=== PATIENT | male | born 1975 | race Hispanic/Latino ===

== ENCOUNTER 2017-11-23 01:47 | Emergency (ER) | payer SELFPAY ==
[2017-11-23] MEDS ORDERED: NA CHLORIDE 0.9% 1,000 ML ONE (03:02)
[2017-11-23] MEDS ORDERED: FAMOTIDINE 20 MG/2 ML VIAL IV ONE (03:03)
[2017-11-23] MEDS ORDERED: ONDANSETRON 4 MG/2 ML VIAL ONE ×2 (03:04→07:24)
[2017-11-23 03:12] LABS: Absolute Lymphocytes (CBC) 0.4 K/uL (0.7-4.9); Absolute Monocytes 0.2 K/uL (0.1-1.3); Absolute Neutrophil 8.2 K/uL (1.8-8.0); Basophils % 0.1 % (0-1.3); Eosinophils % 0.2 % (0-4.4); Hematocrit 43.2 % (39.6-49.0); MCH 31.8 pg (27.0-35.0); MCV 91.9 fL (80-100); MPV 7.9 fL (7.6-11.3); Monocytes % 2.6 % (3.3-12.3)
[2017-11-23 03:38] LABS: ALT/SGPT 24 U/L (12-78); AST/SGOT 19 U/L (15-37); Albumin 4.1 g/dL (3.4-5.0); Alkaline Phosphatase 94 U/L (45-117); Amylase Level 74 U/L (25-115); BUN Blood Urea Nitrogen 17 mg/dL (7-18); Bicarbonate 29 mmol/L (21-32); Bilirubin Direct 0.2 mg/dL (0-0.2); Bilirubin Total 0.6 mg/dL (0.2-1.0); Glucose Level 103 mg/dL (74-106); Lipase 159 U/L (73-393); Potassium 3.8 mmol/L (3.5-5.1); Protein, Total 8.4 g/dL (6.4-8.2); Sodium Level 141 mmol/L (136-145)
[2017-11-23 05:03] LABS: Blood Morphology Comment NOT SEEN (NOT SEEN); Platelet Estimate ADEQ; Urine White Blood Cell Casts OK
--- NOTE | 2017-11-23 07:18 | EDPHYS ---
Physician Documentation [facility] Name: Blayne Garcia Age: 42 yrs Sex: Male : 1975 Arrival Date: 11/23/2017 Time: 01:49 Bed 14 Private MD: ED Physician Abraham Mcdaniels HPI: 11/23 02:30 This 42 yrs old Male presents to ER via EMS with complaints of nausea and cp vomiting. 02:30 The patient presents to the emergency department with nausea, with "dry heaves", cp vomiting, that is continuous, abdominal pain, of the epigastric area and right upper quadrant. Onset: The symptoms/episode began/occurred yesterday, at 16:00. Possible causes: unknown. Associated signs and symptoms: Pertinent positives: fever, Pertinent negatives: diarrhea. Severity of symptoms: in the emergency department the symptoms are unchanged despite home interventions. Historical: - Allergies: 01:54 No Known Allergies; bp - Home Meds: 01:54 carbamazepine 200 mg Oral CM12 800 mg daily [Active]; bp - PMHx: 01:54 EPILEPSY; Cerebral Palsy; bp - Immunization history:: Adult Immunizations up to date. - Social history:: Smoking status: Patient/guardian denies using tobacco. - Ebola Screening: : Patient negative for fever greater than or equal to 101.5 degrees Fahrenheit, and additional compatible Ebola Virus Disease symptoms Patient denies exposure to infectious person Patient denies travel to an Ebola-affected area in the 21 days before illness onset No symptoms or risks identified at this time. ROS: 02:35 Constitutional: Positive for poor PO intake, Negative for fever. cp 02:35 Eyes: Negative for injury, pain, redness, and discharge. cp 02:35 ENT: Negative for drainage from ear(s), ear pain, sore throat, difficulty swallowing, difficulty handling secretions. 02:35 Cardiovascular: Negative for chest pain. 02:35 Respiratory: Negative for cough, wheezing. 02:35 Abdomen/GI: Positive for abdominal pain, nausea and vomiting, Negative for diarrhea, constipation, hematemesis, black/tarry stool, rectal bleeding. 02:35 Neuro: Negative for altered mental status. 02:35 All other systems are negative. Exam: 02:35 Head/Face: Normocephalic, atraumatic. cp 02:35 Eyes: Pupils equal round and reactive to light, extra-ocular motions intact. Lids and lashes normal. Conjunctiva and sclera are non-icteric and not injected. Cornea within normal limits. Periorbital areas with no swelling, redness, or edema. ENT: Nares patent. No nasal discharge, no septal abnormalities noted. Tympanic membranes are normal and external auditory canals are clear. Oropharynx with no redness, swelling, or masses, exudates, or evidence of obstruction, uvula midline. Mucous membranes moist. Chest/axilla: Normal chest wall appearance and motion. Nontender with no deformity. No lesions are appreciated. 02:35 Constitutional: The patient appears in no acute distress, alert, awake, non-toxic. 02:35 Cardiovascular: Rate: tachycardic, Rhythm: regular. 02:35 Respiratory: the patient does not display signs of respiratory distress, Respirations: normal, no use of accessory muscles, no retractions, no splinting, no tachypnea, labored breathing, is not present, Breath sounds: are clear throughout, no decreased breath sounds, no stridor, no wheezing. 02:35 Abdomen/GI: Inspection: abdomen appears normal, Bowel sounds: active, all quadrants, Palpation: soft, in all quadrants, mild abdominal tenderness, in the epigastric area and right upper quadrant, rebound tenderness, is not appreciated, voluntary guarding, is not appreciated, involuntary guarding, is not appreciated. 02:35 Back: pain, is absent, ROM is normal. Vital Signs: 01:54 BP 114 / 79; Pulse 126; Resp 18; Temp 98.6; Pulse Ox 97% on R/A; Weight 47.63 kg; bp 02:44 BP 110 / 96; Pulse 113; Resp 17 S; Pulse Ox 98% on R/A; jd3 03:34 BP 104 / 79; Pulse 103; Resp 16 S; Pulse Ox 98% on R/A; jd3 04:26 BP 104 / 79; Pulse 109; Resp 16 S; Pulse Ox 98% on R/A; jd3 05:50 BP 113 / 74; Pulse 107; Resp 16 S; Pulse Ox 98% on R/A; jd3 06:37 BP 107 / 67; Pulse 97; Resp 16 S; Pulse Ox 99% on R/A; jd3 09:15 BP 113 / 71; Pulse 98; Resp 16; Pulse Ox 98% on R/A; Pain 0/10; iw MDM: 02:01 Patient medically screened. cp 03:05 Differential diagnosis: gastritis, cholecystitis, pancreatitis, appendicitis, cp diverticulitis, viral gastroenteritis, gastroenteritis. 07:10 Data reviewed: vital signs, nurses notes, lab test result(s), radiologic studies. Test wa interpretation: by ED physician or midlevel provider: labs noted wnl. CT: enteritis? air space opacities may represent atelectasis vs aspiration. 11/23 02:25 Order name: Amylase, Serum; Complete Time: 07:00 cp 11/23 02:25 Order name: Basic Metabolic Panel; Complete Time: 07:01 cp 11/23 02:25 Order name: CBC with Diff; Complete Time: 07:01 cp 11/23 02:25 Order name: Creatinine for Radiology; Complete Time: 07:01 cp 11/23 02:25 Order name: Hepatic Function; Complete Time: 07:01 cp 11/23 02:25 Order name: Lipase; Complete Time: 07:01 cp 11/23 02:39 Order name: CT Abd/Pelvis - W/Contrast; Complete Time: 15:17 cp 11/23 03:01 Order name: XRAY Chest (1 view); Complete Time: 15:17 cp 11/23 05:03 Order name: CBC Smear Scan; Complete Time: 07:01 EDMS 11/23 02:25 Order name: IV Saline Lock; Complete Time: 03:05 cp 11/23 02:25 Order name: Labs collected and sent; Complete Time: 03:05 cp Administered Medications: 03:04 Drug: Pepcid 20 mg Route: IVP; Site: right antecubital; jd3 06:56 Follow up: Response: No adverse reaction jd3 03:05 Drug: Zofran 4 mg Route: IVP; Site: right antecubital; jd3 06:57 Follow up: Response: No adverse reaction jd3 03:05 Drug: NS 0.9% 1000 ml Route: IV; Rate: 1 bolus; Site: right antecubital; jd3 06:57 Follow up: Response: No adverse reaction; IV Status: Completed infusion; IV Intake: jd3 1000ml 07:20 Drug: Zofran 2 mg Route: IVP; Site: right antecubital; iw 09:01 Follow up: Response: No adverse reaction; Vomiting decreased iw 07:30 Drug: Rocephin - (cefTRIAXone) 2 grams Route: IVPB; Infused Over: 30 mins; Site: right iw antecubital; 07:40 Follow up: IV Status: Completed infusion iw 07:39 Drug: Zithromax 500 mg Route: IVPB; Infused Over: 1 hrs; Site: right antecubital; iw 09:00 Follow up: IV Status: Completed infusion iw Disposition: 11/23/17 07:17 Discharged to Home. Impression: Acute Vomiting, Pulmonary Infitrates. - Condition is Stable. - Discharge Instructions: Nausea and Vomiting, Adult, [place], [place] Diet. - Prescriptions for Augmentin 875- 125 mg Oral Tablet - take 1 tablet by ORAL route every 12 hours for 10 days; 20 tablet. Zofran 4 mg Oral Tablet - take 1 tablet by ORAL route every 12 hours As needed; 20 tablet. - Medication Reconciliation Form, Thank You Letter, Antibiotic Education, Prescription Opioid Use form. - Follow up: Private Physician; When: 1 - 2 days; Reason: Re-evaluation by your physician. - Problem is new. - Symptoms have improved. - Notes: follow up with his doctor within 2 days for further evaluation. Signatures: Dispatcher [employer] Cristal West RN RN iw Archie Burks PA PA cp Appiah, William, MD MD wa Davies, Jonathon, RN RN jd3 Peltier, Brian, RN RN bp Corrections: (The following items were deleted from the chart) 09:47 07:17 11/23/2017 07:17 Discharged to Home. Impression: Acute Vomiting; Pulmonary iw Infitrates. Condition is Stable. Forms are Medication Reconciliation Form, Thank You Letter, Antibiotic Education, Prescription Opioid Use. Follow up: Private Physician; When: 1 - 2 days; Reason: Re-evaluation by your physician. Problem is new. Symptoms have improved. wa
--- NOTE | 2017-11-23 07:18 | ER ---
Nurse's Notes [facility] Name: Blayne Garcia Age: 42 yrs Sex: Male : 1975 Arrival Date: 11/23/2017 Time: 01:49 Bed 14 Private MD: Diagnosis: Acute Vomiting;Pulmonary Infitrates Presentation: 11/23 01:50 Presenting complaint: EMS states: NAUSEA AND VOMITING SINCE 1600. Transition of care: bp patient was not received from another setting of care. Onset of symptoms was November 22, 2017 at 16:00. Risk Assessment: Do you want to hurt yourself or someone else? Patient reports no desire to harm self or others. Initial Sepsis Screen: Does the patient meet any 2 criteria? No. Patient's initial sepsis screen is negative. Does the patient have a suspected source of infection? No. Patient's initial sepsis screen is negative. Care prior to arrival: Glucose check: 95. 01:50 Method Of Arrival: EMS: [facility] bp 01:50 Acuity: LILI 3 bp Triage Assessment: 01:54 General: Appears in no apparent distress. comfortable, Behavior is calm, cooperative. bp Pain: Denies pain. Historical: - Allergies: 01:54 No Known Allergies; bp - Home Meds: 01:54 carbamazepine 200 mg Oral CM12 800 mg daily [Active]; bp - PMHx: 01:54 EPILEPSY; Cerebral Palsy; bp - Immunization history:: Adult Immunizations up to date. - Social history:: Smoking status: Patient/guardian denies using tobacco. - Ebola Screening: : Patient negative for fever greater than or equal to 101.5 degrees Fahrenheit, and additional compatible Ebola Virus Disease symptoms Patient denies exposure to infectious person Patient denies travel to an Ebola-affected area in the 21 days before illness onset No symptoms or risks identified at this time. Screenin:54 Abuse screen: Denies threats or abuse. Nutritional screening: No deficits noted. jd3 Tuberculosis screening: No symptoms or risk factors identified. Fall Risk Secondary diagnosis (15 points) impaired mobility, Ambulatory Aid- None/Bed Rest/Nurse Assist (0 pts). Gait- Impaired (20 pts.). Mental Status- Oriented to own ability (0 pts). Total García Fall Scale indicates Low Risk Score (25-44 pts). Fall prevention measures have been instituted. Side Rails Up X 2 Placed close to Nursing Station Frequent Obs/Assesments occuring Family Present and informed to notify staff if they need to leave bedside. Assessment: 01:49 General: Appears uncomfortable, Behavior is cooperative. Pain: Complains of pain in jd3 abdomen Quality of pain is described as aching, Also complains of nausea. 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 Cardiovascular: Capillary refill < 3 seconds Patient's skin is warm and dry. Respiratory: Airway is patent Respiratory effort is even, unlabored, Respiratory pattern is regular, symmetrical, Breath sounds are clear bilaterally. GI: Abdomen is round Bowel sounds present X 4 quads. Abd is soft and non tender X 4 quads. Parent/caregiver reports the patient having nausea, vomiting. : No signs and/or symptoms were reported regarding the genitourinary system. EENT: No signs and/or symptoms were reported regarding the EENT system. Derm: Skin is intact, Skin is dry, Skin is normal, Skin temperature is warm. 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 02:44 Reassessment: Patient appears in no apparent distress at this time. No changes from jd3 previously documented assessment. Patient and/or family updated on plan of care and expected duration. Pain level reassessed. 03:34 Reassessment: Patient appears in no apparent distress at this time. No changes from jd3 previously documented assessment. Patient and/or family updated on plan of care and expected duration. Pain level reassessed. 04:26 Reassessment: Patient appears in no apparent distress at this time. No changes from jd3 previously documented assessment. Patient and/or family updated on plan of care and expected duration. Pain level reassessed. 05:51 Reassessment: Patient appears in no apparent distress at this time. No changes from jd3 previously documented assessment. Patient and/or family updated on plan of care and expected duration. Pain level reassessed. 06:36 Reassessment: Patient appears in no apparent distress at this time. No changes from jd3 previously documented assessment. Patient and/or family updated on plan of care and expected duration. Pain level reassessed. 07:37 Reassessment: pt vomited small amount of liquid while receiving Rocephin, Zofran was iw given prior to Rocephin, mother at bedside, VSS. 09:26 Reassessment: Patient appears in no apparent distress at this time. Patient and/or iw family updated on plan of care and expected duration. Pain level reassessed. pt drank 2 oz apple juice with no vomiting, waiting for mother to return to dept to discharge pt, called mother several times. Vital Signs: 01:54 BP 114 / 79; Pulse 126; Resp 18; Temp 98.6; Pulse Ox 97% on R/A; Weight 47.63 kg; bp 02:44 BP 110 / 96; Pulse 113; Resp 17 S; Pulse Ox 98% on R/A; jd3 03:34 BP 104 / 79; Pulse 103; Resp 16 S; Pulse Ox 98% on R/A; jd3 04:26 BP 104 / 79; Pulse 109; Resp 16 S; Pulse Ox 98% on R/A; jd3 05:50 BP 113 / 74; Pulse 107; Resp 16 S; Pulse Ox 98% on R/A; jd3 06:37 BP 107 / 67; Pulse 97; Resp 16 S; Pulse Ox 99% on R/A; jd3 09:15 BP 113 / 71; Pulse 98; Resp 16; Pulse Ox 98% on R/A; Pain 0/10; iw ED Course: 01:49 Patient arrived in ED. jd3 01:51 Triage completed. bp 01:55 Patient has correct armband on for positive identification. Bed in low position. Call jd3 light in reach. Side rails up X2. Adult w/ patient. 01:55 Arm band placed on. jd3 02:00 Archie Burks PA is PHCP. cp 02:00 Abraham Mcdaniels MD is Attending Physician. cp 02:03 Hipolito Nunez, ABRAHAM is Primary Nurse. jd3 03:19 X-ray completed. Portable x-ray completed in exam room. Patient tolerated procedure kw well. 03:20 XRAY Chest (1 view) In Process Unspecified. EDMS 05:04 CT completed. Patient tolerated procedure well. Patient moved to CT via stretcher. Patient moved back from CT. 05:05 CT Abd/Pelvis - W/Contrast In Process Unspecified. EDMS 07:09 Primary Nurse role handed off by Hipolito Nunez, ABRAHAM iw 07:09 Cristal Turpin, RN is Primary Nurse. iw 07:10 Inserted saline lock: 20 gauge in right antecubital area, using aseptic technique. IV iw inserted by scene shifter staff. 07:39 IV is patent, is intact, with fluids infusing freely, with good blood return. iw 09:47 No provider procedures requiring assistance completed. IV discontinued, intact, iw bleeding controlled, No redness/swelling at site. Pressure dressing applied. Administered Medications: 03:04 Drug: Pepcid 20 mg Route: IVP; Site: right antecubital; jd3 06:56 Follow up: Response: No adverse reaction jd3 03:05 Drug: Zofran 4 mg Route: IVP; Site: right antecubital; jd3 06:57 Follow up: Response: No adverse reaction jd3 03:05 Drug: NS 0.9% 1000 ml Route: IV; Rate: 1 bolus; Site: right antecubital; jd3 06:57 Follow up: Response: No adverse reaction; IV Status: Completed infusion; IV Intake: jd3 1000ml 07:20 Drug: Zofran 2 mg Route: IVP; Site: right antecubital; iw 09:01 Follow up: Response: No adverse reaction; Vomiting decreased iw 07:30 Drug: Rocephin - (cefTRIAXone) 2 grams Route: IVPB; Infused Over: 30 mins; Site: right iw antecubital; 07:40 Follow up: IV Status: Completed infusion iw 07:39 Drug: Zithromax 500 mg Route: IVPB; Infused Over: 1 hrs; Site: right antecubital; iw 09:00 Follow up: IV Status: Completed infusion iw Intake: 06:57 IV: 1000ml; Total: 1000ml. jd3 Outcome: 07:17 Discharge ordered by . wa 09:46 Discharged to home via wheelchair, with family. iw 09:46 Condition: good 09:46 Discharge instructions given to family, Instructed on discharge instructions, follow up and referral plans. medication usage, bland diet, no Hot Cheetos Demonstrated understanding of instructions, follow-up care, medications, Prescriptions given X 2. 09:47 Patient left the ED. iw Signatures: Dispatcher [employer] EDMS Carlton Romero Irene, RN RN Mai Burden Corey, PA PA cp Appiah, William, MD MD wa Davies, Jonathon, RN RN jd3 Marcos Bartholomew, RN RN bp
[2017-11-23] MEDS ORDERED: CEFTRIAXONE/SWI 1gm 2 GM/20 ML SYR ONE (07:22)
[2017-11-23] MEDS ORDERED: AZITHROMYCIN 500 MG/250 ML BAG ONE ×2 (07:22→07:49)
--- NOTE | 2017-11-23 09:02 | RAD REPORT ---
EXAM DESCRIPTION: RAD - Chest Single View - 11/23/2017 3:19 am CLINICAL HISTORY: N/V Chest pain. COMPARISON: No comparisonsNo comparisons FINDINGS: Portable technique limits examination quality. The lungs are grossly clear. The heart is normal in size. No displaced fractures. IMPRESSION: No acute intrathoracic process suspected.
--- NOTE | 2017-11-23 09:06 | RAD REPORT ---
EXAM DESCRIPTION: CTAbdomen Pelvis W Contrast - 11/23/2017 6:57 am CLINICAL HISTORY: Abdominal pain. Abd pain;Nausea / vomiting COMPARISON: No comparisons TECHNIQUE: Biphasic CT imaging of the abdomen and pelvis was performed with 100 ml non-ionic IV cont rast. All CT scans are performed using dose optimization technique as appropriate and may include automated exposure control or mA/KV adjustment according to patient size. FINDINGS: Mild areas of interstitial thickening seen in both lung bases in the inferior right middle lobe.Small hiatal hernia. The liver contains a small cyst in the left lobe measuring 10 mm. No intrahepatic biliary dilatation seen. The spleen, pancreas, adrenal glands and kidneys are within normal limits. No bowel obstruction, free air, free fluid or abscess. The appendix is normal. No evidence of signi ficant lymphadenopathy. No suspicious bony findings. IMPRESSION: No acute intra-abdominal or pelvic finding. Interstitial thickening in the lung bases is probably chronic.
== END 2017-11-23 09:47 | disposition home or self-care (01) ==
LOC: ER 01:47
DX: R91.8 Other nonspecific abnormal finding of lung field (principal)
CPT/HCPCS: 36415; 71045; 74177; 80048; 80076; 82150; 83690; 85025; 96361; 96365; 96375; 99284; J0456; J0696; J2405; J7030; Q9967

== ENCOUNTER 2025-01-05 08:54 | Emergency (ER) | payer SELFPAY ==
[2025-01-05 10:13] LABS: Influenza A Ag Negative; Influenza B Ag Negative; SARS-CoV-2 Antigen Rapid Res Negative (Negative)
--- NOTE | 2025-01-05 10:43 | RAD REPORT ---
EXAMINATION: ONE VIEW CHEST XR CLINICAL INDICATION: Male, 49 years old.,COUGH TECHNIQUE: Frontal chest projection is submitted. Examination is limited by patient positioning and t echnique. COMPARISON: 11/23/2017 FINDINGS: The lungs are well inflated and clear. No pneumothorax or sizable effusion. The heart is normal in s ize. Mediastinal contours are unremarkable. IMPRESSION: No acute intrathoracic abnormalities.
--- NOTE | 2025-01-05 10:50 | ER ---
Nurse's Notes [facility] Name: Blayne Garcia Age: 49 yrs Sex: Male : 1975 Arrival Date: 01/05/2025 Time: 08:54 Bed 19 Private MD: Diagnosis: Cough Presentation: 01/05 09:08 Chief complaint: Parent and/or Guardian states: cough, cold symptoms X 1 week. iw Coronavirus screen: At this time, the client does not indicate any symptoms associated with coronavirus-19. Ebola Screen: No symptoms or risks identified at this time. Initial Sepsis Screen: Does the patient meet any 2 criteria? No. Patient's initial sepsis screen is negative. Does the patient have a suspected source of infection? No. Patient's initial sepsis screen is negative. Risk Assessment: Do you want to hurt yourself or someone else? Patient reports no desire to harm self or others. Onset of symptoms was December 29, 2024. 09:08 Method Of Arrival: EMS: [facility] iw 09:08 Acuity: LILI 4 iw Historical: - Allergies: 09:10 No Known Allergies; iw - PMHx: 09:10 Cerebral Palsy; epilepsy; iw - Family history:: not pertinent. - Hospitalizations: : No recent hospitalization is reported. Screenin:41 [facility] ED Fall Risk Assessment (Adult) History of falling in the last 3 months, iw including since admission No falls in past 3 months (0 pts) Confusion or Disorientation Yes (5 pts) Intoxicated or Sedated No (0 pts) Impaired Gait Yes (1 pt) Mobility Assist Device Used Yes (1 pt) Altered Elimination Yes (1 pt) Score/Fall Risk Level 3 or more points = High Risk Oriented to surroundings, Maintained a safe environment. Abuse screen: Denies injuries from another. Nutritional screening: No deficits noted. Tuberculosis screening: No symptoms or risk factors identified. Assessment: 09:38 General: Appears in no apparent distress. Behavior is calm, cooperative. Pain:. Neuro: iw Level of Consciousness is awake, alert, obeys commands. Cardiovascular: Patient's skin is warm and dry. Respiratory: Respiratory effort is even, unlabored, Respiratory pattern is regular, symmetrical. Derm: Vital Signs: 09:08 BP 112 / 78; Pulse 61; Resp 16; Temp 98.6; iw ED Course: 09:04 Patient arrived in ED. iw 09:04 Tremayne Moncada MD is Attending Physician. rn 09:04 Cristal Turpin RN is Primary Nurse. iw 09:10 Triage completed. iw 09:10 Arm band placed on. iw 09:42 Patient has correct armband on for positive identification. Bed in low position. iw Provided Education on: . 10:21 XRAY Chest (1 view) In Process Unspecified. EDMS Administered Medications: No medications were administered Medication: :42 VIS not applicable for this client. iw Outcome: 10:50 Discharge ordered by . rn 11:57 Patient left the ED. iw Signatures: Dispatcher [employer] EDMS Cristal Turpin RN RN iw Tremayne Moncada MD MD rn
--- NOTE | 2025-01-05 10:50 | EDPHYS ---
Physician Documentation [facility] Name: Blayne Garcia Age: 49 yrs Sex: Male : 1975 Arrival Date: 01/05/2025 Time: 08:54 Bed 19 Private MD: ED Physician Tremayne Moncada HPI: 01/05 09:11 This 49 yrs old Male presents to ER via EMS with complaints of Cough. rn 09:11 The patient or guardian reports cough. Onset: The symptoms/episode began/occurred 1 rn week(s) ago. Severity of symptoms: At their worst the symptoms were mild, in the emergency department the symptoms are unchanged. Modifying factors: The symptoms are alleviated by nothing, the symptoms are aggravated by nothing. Mother reports cough for 1 week, no difficulty breathing, productive cough. Mother has identical symptoms and family member recently diagnosed with COVID.. Historical: - Allergies: 09:10 No Known Allergies; iw - PMHx: 09:10 Cerebral Palsy; epilepsy; iw - Family history:: not pertinent. - Hospitalizations: : No recent hospitalization is reported. ROS: 09:11 Constitutional: Positive for fever and myalgias Cardiovascular: Negative for chest rn pain, palpitations, and edema, Respiratory: Positive for cough, negative for shortness of breath Abdomen/GI: Negative for abdominal pain, nausea, vomiting, diarrhea, and constipation, MS/Extremity: Negative for injury and deformity, Neuro: Negative for headache, weakness, numbness, tingling, and seizure, Exam: 09:11 Constitutional: Patient with cerebral palsy but smiling and nontoxic appearance ENT: rn Moist mucous membranes, no stridor Cardiovascular: Regular rate and rhythm. No pulse deficits. Respiratory: No increased work of breathing, no retractions or nasal flaring. Vital Signs: 09:08 BP 112 / 78; Pulse 61; Resp 16; Temp 98.6; iw MDM: 09:04 Medical Screening Exam initiated rn 10:49 Differential Diagnosis: Bronchitis Influenza Upper Respiratory Infection Pharyngitis rn Viral Syndrome Pneumonia. Data reviewed: vital signs, nurses notes, lab test result(s), radiologic studies, plain films, and as a result, I will discharge patient. Independent interpretation of the following test(s) in the Emergency Department X-Ray: My interpretation is Chest x-ray images negative for pneumonia per my interpretation. Counseling: I had a detailed discussion with the patient and/or guardian regarding the historical points, exam findings, and any diagnostic results supporting the discharge/admit diagnosis, lab results, radiology results, the need for outpatient follow up, to return to the emergency department if symptoms worsen or persist or if there are any questions or concerns that arise at home. Special discussion: I discussed with the patient/guardian in detail that at this point there is no indication for admission to the hospital. It is understood, however, that if the symptoms persist or worsen the patient needs to return immediately for re-evaluation. 01/05 09:08 Order name: COVID-19 Ag + Flu A+B Ag; Complete Time: 10:25 rn 01/05 09:08 Order name: Group A Streptococcus Rapid; Complete Time: 10:25 rn 01/05 10:03 Order name: Throat Culture EDMS 01/05 09:08 Order name: XRAY Chest (1 view); Complete Time: 10:49 rn Administered Medications: No medications were administered Disposition Summary: 01/05/25 10:50 Discharge Ordered Notes: Location: Home rn Problem: new rn Symptoms: are unchanged rn Condition: Stable rn Diagnosis - Cough rn Followup: rn - With: Private Physician - When: As needed - Reason: Recheck today's complaints, Re-evaluation by your physician Discharge Instructions: - Discharge Summary Sheet rn - Cough, Adult rn Forms: - Medication Reconciliation Form rn - Antibiotic triage rn - Prescription Opioid Use rn - Patient Portal Instructions rn - Leadership Thank You Letter rn Prescriptions: - Zithromax Z-Linwood 250 mg Oral Tablet - take 1 tablet ORAL route as directed for 5 days Day 1 - take two (2) tablets rn one time. Day 2, 3, 4 , 5 take one (1) tablet once daily.; 6 tablet; Refills: 0, Product Selection Permitted Signatures: Dispatcher [employer] EDMS Cristal Turpin RN RN iw Tremayne Moncada MD MD pattern checker: (The following items were deleted from the chart) : 09:09 COVID-19 Ag + Flu A+B Ag+I.LAB.BRZ ordered. EDMS EDMS : 09:09 Group A Streptococcus Rapid Sc+I.LAB.BRZ ordered. EDMS EDMS : 09:09 Chest Single View+RAD.RAD.BRZ ordered. EDMS EDMS
[2025-01-05 13:51] VITALS: BP 112/78; TEMP 98.6
== END 2025-01-05 11:57 | disposition home or self-care (01) ==
LOC: ER 08:54
DX: R05.9 Cough, unspecified (principal); Z11.52 Encounter for screening for COVID-19
CPT/HCPCS: 36415; 71045; 87070; 87428; 99282